=== PATIENT | female | born 1965 | race Caucasian/White ===

== ENCOUNTER 2018-07-19 08:05 | Day surgery (SDC) | payer OTHER ==
[~2018-07-19] VITALS: Ht 172.7 cm; Wt 110.3 kg
[~2018-07-19 08:05] MED LIST: CLIMARA1 EACH; EPIPEN0.3 MG/0.3; Synthroid25 MCG
== END 2018-07-19 10:01 | disposition home or self-care (01) ==
LOC: ORSCSDS 08:05
PROVIDERS: Surgery
PROC: 0DJD8ZZ Inspection of Lower Intestinal Tract, Via Natural or Artificial Opening Endoscopic (ICD-10-PCS; principal; 2018-07-19 09:30)
DX: Z12.11 Encounter for screening for malignant neoplasm of colon (principal); Z80.0 Family history of malignant neoplasm of digestive organs; Z83.71 Family history of colonic polyps; E03.9 Hypothyroidism, unspecified; E66.01 Morbid (severe) obesity due to excess calories; Z68.37 Body mass index [BMI] 37.0-37.9, adult; Z79.899 Other long term (current) drug therapy
CPT/HCPCS: J7120